=== PATIENT | male | born 1965 | race African-American/Black ===

== ENCOUNTER 2024-03-06 22:14 | Inpatient (IN) | payer OTHER, SELFPAY ==
[2024-03-06 16:00] VITALS: BP 143/79
[2024-03-06 19:06] VITALS: BP 144/81
--- NOTE | 2024-03-06 19:16 | ED.GENMED ---
History of Present Illness
General
Chief Complaint: Breathing Problem
Source: patient
Exam Limitations: none
Time Seen by Provider: 03/06/24 19:03
History of Present Illness
History of Present Illness:
See MDM
Past History
Past History
ED Past Medical History: HTN and Hypercholesterolemia
ED Past Surgical History: None
Social History
Tobacco: Non-smoker
Alcohol: None
Phy Exam
Physical Exam
Physical Exam:
See MDM
Scores
Heart Failure Risk
Heart Failure Risk Score: Not Applicable
Course
Orders/Labs/Results
Orders:
Orders
03/06/24 16:05
Electrocardiogram (*1) Urgent
Reason for Study: Bradycardia / Tachycardia
03/06/24 19:07
Complete Blood Count/With Diff Urgent
Comprehensive Metabolic Panel Urgent
Lactic Acid Urgent
03/06/24 19:15
0.9% Sodium Chloride 1000 ml [Nss] 1,000 ml IV BOLUS
Ketorolac [Toradol] 30 mg IV NOW STA
03/06/24 19:27
Blood Culture Q30M
NANCY Source: Blood/Venous
Specimen Description:
Blood Culture Q30M
NANCY Source: Blood/Venous
Specimen Description:
03/06/24 20:30
Urinalysis Reflex To Culture Urgent
Date Specimen was Collected: 03/06/24
Time Specimen was Collected: 19:51
Urine Microscopic Reflex Cult Urgent
Urine Culture Urgent
NANCY Source: U
Specimen Description:
Date Specimen was Collected: 03/06/24
Time Specimen was Collected: 19:51
03/06/24 21:11
Cefepime HCl [Maxipime] 1,000 mg IV NOW STA
Abnormal Lab Results
03/06/24 03/06/24
19:07 20:30
WBC 18.3 H 10^3/uL
(4.8-10.8)
Hgb 11.0 L g/dL
(13.0-18.0)
Hct 35.6 L %
(39.0-52.0)
MCV 75.7 L fL
(80.0-94.0)
MCH 23.4 L pg
(27.0-31.0)
MCHC 30.9 L g/dL
(33.0-37.0)
RDW 16.3 H %
(11.5-14.5)
Abs Immat Gran (auto) 0.1 H 10^3/uL
(0-0.05)
Absolute Neuts (auto) 16.1 H 10^3/uL
(1.4-6.5)
Absolute Lymphs (auto) 0.9 L 10^3/uL
(1.2-3.4)
Absolute Monos (auto) 1.2 H 10^3/uL
(0.1-0.6)
Neutrophils % 87.7 H %
(42.2-75.2)
Lymphocytes % 4.6 L %
(20.5-51.1)
Glucose 150 H mg/dl
(70-99)
Urine Ketones 2+ A
(Negative)
Ur Occult Blood Reflex 3+ A
(Negative)
Urine Nitrite (Reflex) Positive A
(Negative)
Leukocyte Esterase Rfl 2+ A
(Negative)
Urine Albumin (Reflex) 1+ A
(Neg - Trace)
03/06/24 19:07
03/06/24 19:07
Vital Signs
Initial and Last Documented VS:
Initial Vital Signs
Temp Pulse Resp BP Pulse Ox
98.1 F 109 16 143/79 100
03/06/24 16:00 03/06/24 16:00 03/06/24 16:00 03/06/24 16:00 03/06/24 16:00
Last Documented Vital Signs
Temp Pulse Resp BP Pulse Ox
101.1 F H 115 15 144/81 100
03/06/24 19:18 03/06/24 19:15 03/06/24 19:15 03/06/24 19:06 03/06/24 19:15
MDM/Problems Addressed
Differential Diagnosis Includes:
HPI and MDM Narrative:
58-year-old male presenting for evaluation of fever and increased urinary frequency. Patient went to urgent care and had blood work and a chest x-ray and viral testing. He was told that chest x-ray was normal. He does not complain of a cough or
shortness of breath. He states he has been urinating about 7 times a night. At baseline, he urinates approximately twice a night. He denies being evaluated for BPH. He had a urinary tract infection a year ago similar to today. On exam, patient
is tachycardic. Although he appears comfortable, he is warm. His temperature was normal in triage rechecked it in the room and it was 101.1. Will give Toradol and obtain basic blood work including blood cultures and lactic acid. Will obtain
urinalysis. No significant abdominal or back pain to suggest significant intra-abdominal pathology or possibly kidney stones
Physical exam
General: Well appearing and non-toxic
HEENT: protecting airway
Neck: appears supple
CV: No evidence of cyanosis. Tachycardic
Resp: No accessory muscle use. Lungs clear
Abd: Non-distended. No significant tenderness noted
Back: No CVA tenderness
Extremities: No deformities
Neuro: alert
Psych: Normal affect
Skin: Warm
Problems Addressed including Acute and Chronic Conditions affecting care:
1. Fever and increased urinary frequency
Acuity: acute
Prognosis: stable
Details: Given the mild back pain and the fever with urinary symptoms, will obtain urinalysis with concern for possible pyelonephritis.
Updates
Urine consistent with nitrates. Given the fever, back pain and urine, will treat as pyelonephritis. Patient started on cefepime.
Differential Diagnosis (but not limited to): Viral syndrome, pyelonephritis, cystitis
Testing considered: CT abdomen/pelvis but there is no significant abdominal or back tenderness noted
Drug therapy (if applicable): OTC meds, please see d/c instruction regarding Rx drugs
Amount and/or Complexity of Data Reviewed
Clinical info obtained from: Patient
External data reviewed: N/A
Labs I independently reviewed (but not limited to): Elevated white blood cell count, lactate normal
Radiology: N/A
Pulse Ox: not hypoxic
EKG independently reviewed: Sinus rhythm, normal axis, no STEMI
Manganese Heater: Sinus rhythm
Critical Care: N/A
Risk of Complication:
Social Determinants of health: Good social support
Discussed with other providers: Hospitalist
Escalation of Care includes Admit/Obs: Given the pyelonephritis with fever, will start antibiotics and admit
Occasional wrong word or 'sound a like' substitutions may have occurred due to the inherent limitations of voice recognition software. Read the chart carefully and recognize, using context, where substitutions have occurred.
*Critical Care Note
Total Time (30-74mins, 75-104mins- exclusive of procedures): Not Applicable
ED Attending Note
-
Portions of this chart may have been created with voice recognition software.� Occasional wrong word or��sound alike� substitutions may have occurred due to the inherent limitations of voice recognition software.
Discharge Plan
Departure
Patient Disposition: Admit
Date of Disposition: 03/06/24
Time of Disposition: 21:14
Admit to: Med/Surg
Presentation/result/management discussed w/ accepting MD/DO: Hospitalist
Discharge Problem:
Acute pyelonephritis
Prescriptions:
No Action
amlodipine 5 mg Tablet
5 mg PO HS
simvastatin 40 mg Tablet
20 mg PO HS
gabapentin 300 mg Capsule
300 mg PO PRN PRN (Reason: pain)
albuterol sulfate 90 mcg/actuation Hfa Aerosol Inhaler
2 puff INHALATION PRN PRN (Reason: Wheezes, SOB)
acetaminophen [Tylenol Extra Strength] 500 mg tablet
1,000 mg PO Q6HPRN PRN (Reason: mild pain) Qty: 1 0RF
ibuprofen 200 mg tablet
400 - 600 mg PO Q6HPRN PRN (Reason: moderate pain) Qty: 1 0RF
oxycodone 5 mg tablet
5 mg PO Q4HPRN PRN (Reason: breakthrough/severe pain) Qty: 5 0RF
Referrals:
Emelia Aguilar DO [Family Provider] -
Interventions
Interventions:
*Risk Screen - Suicide Last Done: 03/06/24 16:04
*Neglect/Abuse Screening Last Done: 03/06/24 16:04
*ED COVID-19 Vaccine History Last Done: 03/06/24 16:04
ED- Cardiac Assessment Last Done: 03/06/24 19:18
ED- Pulmonary Assessment Last Done: 03/06/24 19:18
Discharge Date and Time
Print Language: THAI
[2024-03-06] MEDS: NSS 1000 IV (19:27)
[2024-03-06 19:28] LABS: Lactic Acid 1.4 mmol/L (0.7-2.0)
[2024-03-06] MEDS: TORADOL 30 MG IV (19:28)
[2024-03-06 19:32] LABS: ALT (SGPT) 20 U/L (0-50); AST (SGOT) 23 U/L (17-59); Albumin 3.7 g/dl (3.5-5.0); Alkaline Phosphatase 65 U/L (38-126); Blood Urea Nitrogen 13 mg/dl (9-20); Calcium 9.1 mg/dl (8.4-10.2); Carbon Dioxide 25 mmol/L (22-30); Chloride 102 mmol/L (98-107); Glucose 150 mg/dl (70-99); Potassium 4.3 mmol/L (3.5-5.1); Sodium 136 mmol/L (135-145); Total Bilirubin 0.8 mg/dl (0.2-1.3); Total Protein 6.9 g/dl (6.3-8.2); eGFR > 60.00
[2024-03-06 19:38] LABS: Hematocrit 35.6 % (39.0-52.0); Mean Corp Hgb Conc. 30.9 g/dL (33.0-37.0); Mean Corpuscular Hgb 23.4 pg (27.0-31.0); Mean Corpuscular Volume 75.7 fL (80.0-94.0); Platelet Count 194 10^3/uL (130-400); Red Cell Dist. Width 16.3 % (11.5-14.5); White Blood Cell Count 18.3 10^3/uL (4.8-10.8)
[2024-03-06 19:41] LABS: % Basophils 0.3 % (0-2); % Eosinophils 0.2 % (0-6); % Immature Granulocytes 0.5 % (0-0.5); % Lymphocytes 4.6 % (20.5-51.1); % Monocytes 6.7 % (1.7-9.3); % Neutrophils 87.7 % (42.2-75.2); Absolute Basophils 0.1 10^3/uL (0-0.2); Absolute Immature Granulocytes 0.1 10^3/uL (0-0.05); Absolute Lymphocytes 0.9 10^3/uL (1.2-3.4); Absolute Monocytes 1.2 10^3/uL (0.1-0.6); Absolute Neutrophils 16.1 10^3/uL (1.4-6.5); Nucleated Red Blood Cells % 0 % (-)
[2024-03-06 20:00] VITALS: BP 127/69
[2024-03-06 20:36] LABS: Urine Albumin 1+ (Neg - Trace); Urine Bilirubin Negative (Negative); Urine Character Slightly Cloudy (Clear); Urine Color Yellow; Urine Glucose Negative (Negative); Urine Ketone 2+ (Negative); Urine Leukocyte 2+ (Negative); Urine Nitrite Positive (Negative); Urine Occult Blood 3+ (Negative); Urine Urobilinogen Negative (Neg - 1+)
[2024-03-06 21:37] LABS: Urine Bacteria Many (Negative); Urine Mucus Few; Urine Squamous Cell 0-2 /LPF (Few); Urine White Cell >100 /HPF (0-5)
[2024-03-06] MEDS: MAXIPIME 1000 MG IV (21:58)
--- NOTE | 2024-03-06 22:01 | HPS.HSE ---
Family Physician
-
Family Physician: Emelia Aguilar
Chief Complaint
-
fever
History of Present Illness
58-year-old male past medical history of hypertension, prediabetes, hypercholesteremia, osteoarthritis, cervical radiculopathy, HSV, presenting with elevated heart rate, pain in the bladder region, difficulty and pain with voiding urine and fevers
and chills. He also has some pain in in his bilateral lower back and increased joint pains. Denies nausea or vomiting. Denies diarrhea. Denies blood in the urine. He denies history of kidney stones.
He drinks alcohol occasionally. Denies smoking.
Medical History
Past Medical History
Past Medical History: Reports Other ( hypertension, prediabetes, hypercholesteremia, osteoarthritis, cervical radiculopathy, HSV,)
Past Surgical History: Reports Other (Lipoma excision, right shoulder rotator cuff x2, cervical spinal fusion, vasectomy, bunionectomy, lumpectomy, trigger finger repair x4))
Social History
Tobacco: Non-smoker
Alcohol: Occasional
Drug: None
Family History
Family History: Not pertinent
Allergies / Home Medications
Allergies reflects when Allergies were last updated in [facility].
Home Medications with original date entered in [facility]
Allergy/Medication List:
Allergies
Allergy/AdvReac Type Severity Reaction Status Date / Time
adhesive Allergy Pustules Verified 02/19/23 11:08
Home Medications
amlodipine 5 mg tablet 5 mg PO HS 02/16/23
simvastatin 40 mg tablet 20 mg PO HS 02/16/23
ibuprofen 200 mg tablet 400 - 600 mg (2 - 3 x 200 mg) PO Q6HPRN PRN moderate pain #1 tab 02/19/23
Review of Systems
-
History Source: Patient
A 12 point ROS was completed and negative except as noted: Yes
Constitutional: Reports No Symptoms
EENT: Reports No Symptoms
Respiratory: Reports No Symptoms
Cardiac: Reports No Symptoms
Abdomen/GI: Reports See HPI
: Reports See HPI
Musculoskeletal: Reports No Symptoms
Skin: Reports No Symptoms
Neurological: Reports No Symptoms
Endocrine: Reports No Symptoms
Hematologic/Lymphatic: Reports No Symptoms
Psych: Reports No Symptoms
Physical Exam
Vital Signs
Vital Signs
Temp Pulse Resp BP Pulse Ox
101.1 F H 115 15 144/81 100
03/06/24 19:18 03/06/24 19:15 03/06/24 19:15 03/06/24 19:06 03/06/24 19:15
Physical Exam
General: Well Developed, Well Nourished and No Apparent Distress
HEENT: NormoCephalic, Moist mucous membranes and Atraumatic
Respiratory: Clear
Cardiac: S1/S2 and Regular Rhythm; No Murmur or Rub
GI: Soft, Non Tender, Non Distended and Normal Bowel Sounds; No Organomegaly
Rectal: Deferred by Provider
Genito-urinary: Other (suprapubic tenderness )
Musculoskeletal: No Clubbing, No Cyanosis and No Edema
Skin: No Rash
Neuro: Nonfocal/grossly intact
Laboratory Results
-
03/06/24 19:07
03/06/24 19:07
Laboratory Results
Lactic Acid 1.4 mmol/L (0.7-2.0) 03/06/24 19:07
Total Bilirubin 0.8 mg/dl (0.2-1.3) 03/06/24 19:07
AST 23 U/L (17-59) 03/06/24 19:07
ALT 20 U/L (0-50) 03/06/24 19:07
Alkaline Phosphatase 65 U/L (38-126) 03/06/24 19:07
Data Reviewed
-
Lab Data: Labs Reviewed by me
Old Records: Reviewed
Impression/Plan
-
IMPRESSION:
PLAN:
# Sepsis (fever, tachycardia, leukocytosis) secondary to acute pyelonephritis
-Urinalysis positive
-IV fluids
-Urine culture
-Blood cultures
-Ceftriaxone
-Check CT abdomen pelvis to rule out obstructive stone/prostatitis
-Tylenol, Toradol as needed
-Bladder scan protocol
Essential hypertension
-Continue amlodipine
Hypercholesterolemia
-Continue statin
Prediabetes
-Not on medication
Osteoarthritis
Cervical radiculopathy
History of HSV
Full code
DVT prophylaxis�SCDs
Regular diet
[2024-03-06 22:47] VITALS: BMI 26.7
[2024-03-06 23:53] VITALS: BP 127/64
[2024-03-07] VITALS (10 sets, daily range): BP systolic 117–139; BP diastolic 38–78
[2024-03-07] MEDS: ROCEPHIN 1000 MG IV ×2 (00:08→23:17)
[2024-03-07] MEDS: LIPITOR PO (00:11)
[2024-03-07] MEDS: NSS 1000 IV ×2 (00:11→12:01)
[2024-03-07] MEDS: NORVASC PO (00:11)
--- NOTE | 2024-03-07 03:53 | PTCARENOTE ---
assumed care of pt as ed hold- afebrile bp wnl- sinus tach- fluids abx per orders- ax3 self care-
[2024-03-07] MEDS: TORADOL 15 MG IV ×3 (05:32→20:29)
[2024-03-07] MEDS: TYLENOL 650 MG PO ×3 (06:27→17:30)
--- NOTE | 2024-03-07 06:36 | PTCARENOTE ---
102.1 fever medicated with tylenol see mar
[2024-03-07 06:48] LABS: % Basophils 0.2 % (0-2); % Eosinophils 0.2 % (0-6); % Immature Granulocytes 0.8 % (0-0.5); % Lymphocytes 6.2 % (20.5-51.1); % Monocytes 6.5 % (1.7-9.3); % Neutrophils 86.1 % (42.2-75.2); Absolute Immature Granulocytes 0.1 10^3/uL (0-0.05); Absolute Lymphocytes 0.8 10^3/uL (1.2-3.4); Absolute Monocytes 0.8 10^3/uL (0.1-0.6); Absolute Neutrophils 11.1 10^3/uL (1.4-6.5); Hematocrit 33.6 % (39.0-52.0); Hemoglobin 10.4 g/dL (13.0-18.0); Mean Corpuscular Hgb 24.1 pg (27.0-31.0); Mean Corpuscular Volume 77.8 fL (80.0-94.0); Mean Platelet Volume 11.7 fL (7.4-10.4); Nucleated Red Blood Cells % 0 % (-); Platelet Count 192 10^3/uL (130-400); Red Blood Cell Count 4.32 10^6/uL (4.70-6.10); Red Cell Dist. Width 16.3 % (11.5-14.5); White Blood Cell Count 12.9 10^3/uL (4.8-10.8)
[2024-03-07 07:17] LABS: ALT (SGPT) 17 U/L (0-50); AST (SGOT) 20 U/L (17-59); Alkaline Phosphatase 66 U/L (38-126); Blood Urea Nitrogen 14 mg/dl (9-20); Calcium 8.4 mg/dl (8.4-10.2); Carbon Dioxide 22 mmol/L (22-30); Chloride 106 mmol/L (98-107); Estimated Creatinine Clearance 66 ml/min; Glucose 130 mg/dl (70-99); Potassium 4.3 mmol/L (3.5-5.1); Sodium 139 mmol/L (135-145); Total Bilirubin 0.4 mg/dl (0.2-1.3); eGFR > 60.00
--- NOTE | 2024-03-07 07:51 | W.PN.HOSP.TC ---
Today's Communication/Plan
-
IV antibiotics. IVF.
Assessment / Plan
Assessment / Plan
Physical exam:
General: Acutely ill
HEENT: Normocephalic, Atraumatic and Moist Mucous Membranes
Respiratory: Clear to Auscultation; Negative Wheezes, Rales or Rhonchi
Cardiac: Regular Rhythm and S1/S2
GI: Soft, Nontender and Nondistended
Musculoskeletal: No Clubbing, No Cyanosis and No Edema
Neuro: Awake, Alert and Disoriented
Psych: Calm
A/P:
Sepsis due to cUTI/pyelonephritis:
Continue IV fluids
Continue IV antibiotics, IV ceftriaxone
Seen ct abd-pelvis and no obstructive uropathy but evidence of cystitis
Follow-up blood and urine cx--> still pending
WBC 18.3-->12.9
Hypertension:
Continue amlodipine 5 mg p.o. nightly
Hyperlipidemia:
Continue atorvastatin 20 mg p.o. nightly
Prediabetes mellitus:
Lifestyle changes modification
DVT prophylaxis:
Start Lovenox SQ
CODE STATUS:
Full code
Anticipated Discharge: 24 - 48 hours
Subjective/Interval History
-
Date of Service: March 07, 2024
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 Tmax 102.1 Fahrenheit today. No abdominal pain nausea vomiting.
Objective Data
-
Labs:
Laboratory Results
03/07/24
04:58
WBC 12.9 H
Hgb 10.4 L
Hct 33.6 L
Plt Count 192
Sodium 139
Potassium 4.3
Chloride 106
Carbon Dioxide 22
BUN 14
Creatinine 1.2
Glucose 130 H
Calcium 8.4
Total Bilirubin 0.4
AST 20
ALT 17
Alkaline Phosphatase 66
Vital Signs:
Vital Signs
Temp Pulse Resp BP Pulse Ox
102.1 F H 105 25 137/67 99
03/07/24 06:27 03/07/24 06:00 03/07/24 06:00 03/07/24 06:00 03/07/24 06:00
I&O
03/06/24 03/07/24 03/08/24
06:59 06:59 06:59
Intake Total 940 / 940
Output Total 400 / 400
Balance 540 / 540
--- NOTE | 2024-03-07 16:08 | CM ---
Patient seen bedside.
IA completed.
Patient lives with spouse in a 2 story home, denies difficulty with stairs.
Patient is a .
Patient independent prior to admission without assistive devices.
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
patient denies home care needs at this time.
PCP: Dr Aguilar
Pharmacy: [facility]
Plan: home needs anticipated spouse will transport.
[2024-03-07] MEDS: LIPITOR 20 MG PO (17:31)
[2024-03-07] MEDS: LOVENOX 40 MG SC (17:32)
--- NOTE | 2024-03-07 17:36 | PTCARENOTE ---
Pt spiked fever of 102 w/ rigors. Tylenol given. Pt does note it is now easier for him when voiding urine.
[2024-03-07] MEDS: NORVASC 5 MG PO (23:17)
[2024-03-07] MEDS: STERILE WATER FOR INJECTION 10 ML IV (23:17)
[2024-03-08] MEDS: NSS 1000 IV (00:47)
[2024-03-08] MEDS: TYLENOL 650 MG PO (03:32)
[2024-03-08 07:00] VITALS: BP 109/67
--- NOTE | 2024-03-08 08:35 | W.PN.HOSP.TC ---
Today's Communication/Plan
-
IV antibiotic
Assessment / Plan
Assessment / Plan
Physical exam:
General: Acutely ill
HEENT: Normocephalic, Atraumatic and Moist Mucous Membranes
Respiratory: Clear to Auscultation; Negative Wheezes, Rales or Rhonchi
Cardiac: Regular Rhythm and S1/S2
GI: Soft, Nontender and Nondistended
Musculoskeletal: No Clubbing, No Cyanosis and No Edema
Neuro: Awake, Alert and Disoriented
Psych: Calm
A/P:
Sepsis due to cUTI/pyelonephritis:
Stop IV fluids
Continue IV antibiotics, IV ceftriaxone
Seen ct abd-pelvis and no obstructive uropathy but evidence of cystitis
Follow-up blood and urine cx--> urine culture with E. coli but pending sensitivities
WBC 18.3-->3.8
Hypertension:
Continue amlodipine 5 mg p.o. nightly
Hyperlipidemia:
Continue atorvastatin 20 mg p.o. nightly
Prediabetes mellitus:
Lifestyle changes modification
DVT prophylaxis:
Cont Lovenox SQ
CODE STATUS:
Full code
Anticipated Discharge: 24 - 48 hours
Subjective/Interval History
-
Date of Service: March 08, 2024
Patient still having fevers but trending down. No nausea vomiting or diarrhea
Objective Data
-
Labs:
Laboratory Results
03/08/24
07:52
WBC Pending
Hgb Pending
Hct Pending
Plt Count Pending
Sodium Pending
Potassium Pending
Chloride Pending
Carbon Dioxide Pending
BUN Pending
Creatinine Pending
Glucose Pending
Calcium Pending
Vital Signs:
Vital Signs
Temp Pulse Resp BP Pulse Ox
100.6 F H 88 18 117/80 99
03/08/24 03:30 03/07/24 23:17 03/07/24 23:13 03/07/24 23:17 03/07/24 23:13
I&O
03/07/24 03/08/24 03/09/24
06:59 06:59 06:59
Intake Total 940 / 940 1140 / 1140
Output Total 400 / 400 615 / 615
Balance 540 / 540 525 / 525
[2024-03-08 08:51] LABS: Hematocrit 32.4 % (39.0-52.0); Hemoglobin 10.2 g/dL (13.0-18.0); Mean Corp Hgb Conc. 31.5 g/dL (33.0-37.0); Mean Corpuscular Hgb 23.8 pg (27.0-31.0); Mean Corpuscular Volume 75.5 fL (80.0-94.0); Mean Platelet Volume 10.5 fL (7.4-10.4); Platelet Count 166 10^3/uL (130-400); Red Blood Cell Count 4.29 10^6/uL (4.70-6.10); White Blood Cell Count 3.8 10^3/uL (4.8-10.8)
[2024-03-08 08:57] LABS: Blood Urea Nitrogen 11 mg/dl (9-20); Calcium 8.2 mg/dl (8.4-10.2); Carbon Dioxide 22 mmol/L (22-30); Chloride 108 mmol/L (98-107); Estimated Creatinine Clearance 80 ml/min; Glucose 145 mg/dl (70-99); Sodium 139 mmol/L (135-145); eGFR > 60.00
[2024-03-08 09:33] LABS: Absolute Neutrophils -Man Diff 2.6 10^3/uL (1.4-6.5); Band Neutrophils 4 % (0-3); Lymphocytes 15 % (20-51); Monocytes 15 % (2-9); Normal RBC Morphology Yes; Platelets Checked Yes; Segmented Neutrophils 66 % (42-75); Total Cells Counted 100
[2024-03-08] MEDS: NSS IV (13:02)
[2024-03-08 15:00] VITALS: BP 120/71
[2024-03-08] MEDS: LIPITOR 20 MG PO (17:37)
[2024-03-08] MEDS: LOVENOX 40 MG SC (17:37)
[2024-03-08] MEDS: ANESTHETIC LOZENGE 1 LOZENGE PO (20:39)
--- NOTE | 2024-03-08 21:35 | PTCARENOTE ---
Pt c/o dry irritating cough. Requesting cepacol lozenges. [employer] covering house contacted, electronic orders received (refer to MAR) Family at bedside. Offers no complaints. Call alegre within reach.
[2024-03-08 23:00] VITALS: BP 118/70
[2024-03-08] MEDS: ROCEPHIN 1000 MG IV (23:03)
[2024-03-08] MEDS: NORVASC 5 MG PO (23:07)
[2024-03-08] MEDS: STERILE WATER FOR INJECTION 10 ML IV (23:07)
[2024-03-09 07:07] LABS: Hematocrit 34.4 % (39.0-52.0); Hemoglobin 10.3 g/dL (13.0-18.0); Mean Corp Hgb Conc. 29.9 g/dL (33.0-37.0); Mean Corpuscular Volume 76.8 fL (80.0-94.0); Mean Platelet Volume 10.3 fL (7.4-10.4); Platelet Count 162 10^3/uL (130-400); Red Blood Cell Count 4.48 10^6/uL (4.70-6.10); Red Cell Dist. Width 16.2 % (11.5-14.5); White Blood Cell Count 4.1 10^3/uL (4.8-10.8)
[2024-03-09 07:35] LABS: Blood Urea Nitrogen 10 mg/dl (9-20); Calcium 8.8 mg/dl (8.4-10.2); Carbon Dioxide 27 mmol/L (22-30); Chloride 105 mmol/L (98-107); Estimated Creatinine Clearance 80 ml/min; Glucose 135 mg/dl (70-99); Potassium 4.4 mmol/L (3.5-5.1); Sodium 139 mmol/L (135-145); eGFR > 60.00
[2024-03-09 08:09] VITALS: BP 136/72
--- NOTE | 2024-03-09 08:54 | W.PN.HOSP.TC ---
Today's Communication/Plan
-
Discharge planning today
Assessment / Plan
Assessment / Plan
Physical exam:
General: No acute distress
HEENT: Normocephalic, Atraumatic and Moist Mucous Membranes
Respiratory: Clear to Auscultation; Negative Wheezes, Rales or Rhonchi
Cardiac: Regular Rhythm and S1/S2
GI: Soft, Nontender and Nondistended
Musculoskeletal: No Clubbing, No Cyanosis and No Edema
Neuro: Awake, Alert and Disoriented
Psych: Calm
A/P:
Sepsis due to cUTI/pyelonephritis:
Stop IV fluids
Change IV ceftriaxone to oral Keflex
Seen ct abd-pelvis and no obstructive uropathy but evidence of cystitis
Follow-up blood and urine cx--> urine culture with E. coli and it is pansensitive
WBC 18.3-->4.1
Plan to discharge today
Hypertension:
Continue amlodipine 5 mg p.o. nightly
Hyperlipidemia:
Continue atorvastatin 20 mg p.o. nightly
Prediabetes mellitus:
Lifestyle changes modification
DVT prophylaxis:
Cont Lovenox SQ
CODE STATUS:
Full code
Anticipated Discharge: Today
Subjective/Interval History
-
Date of Service: March 09, 2024
Patient doing well today. Afebrile
Objective Data
-
Labs:
Laboratory Results
03/09/24
06:42
WBC 4.1 L
Hgb 10.3 L
Hct 34.4 L
Plt Count 162
Sodium 139
Potassium 4.4
Chloride 105
Carbon Dioxide 27
BUN 10
Creatinine 1.0
Glucose 135 H
Calcium 8.8
Vital Signs:
Vital Signs
Temp Pulse Resp BP Pulse Ox
99 F 82 18 136/72 97
03/09/24 08:09 03/09/24 08:09 03/09/24 08:09 03/09/24 08:09 03/09/24 08:09
I&O
03/08/24 03/09/24 03/10/24
06:59 06:59 06:59
Intake Total 1140 / 1140 1920 / 1920
Output Total 615 / 615 1075 / 1075
Balance 525 / 525 845 / 845
[2024-03-09 09:35] LABS: Absolute Neutrophils -Man Diff 1.9 10^3/uL (1.4-6.5); Band Neutrophils 4 % (0-3); Eosinophils 3 % (0-6); Lymphocytes 34 % (20-51); Monocytes 14 % (2-9); Segmented Neutrophils 44 % (42-75)
[2024-03-09 09:36] LABS: Acanthocytes 1+; Anisocytosis 1+; Hypochromasia 2+; Normal RBC Morphology No; Ovalocytes 1+; Platelets Checked Yes; Polychromasia 1+; Total Cells Counted 100
--- NOTE | 2024-03-09 11:33 | W.DCSUMMARY ---
Discharge Summary
Discharge Data
Date of Admission: 03/06/24
Date of Discharge: 03/09/24
-
Pending Results: No
Hospital Course
Patient 58 years old male came into the hospital with fever and found to have urinary tract infection/pyelonephritis. He was given broad-spectrum IV antibiotics and IV fluids. Blood cultures no growth. Urine culture was consistent with E. coli
pansensitive. His fever subsided and he felt better. He is going to be discharged on a oral course of antibiotics according to sensitivities. He has been discharged in stable condition today.
Discharge duration: 35 minutes
Discharge Plan
-
Patient Disposition: Home (Routine Discharge)
Discharge Diagnosis/Procedures: Sepsis. Urinary tract infection. Pyelonephritis.
Diet: Low Cholesterol
Activity: As tolerated
Blood Work: Please PCP to order CBC, BMP within 1 week
Referrals:
Emelia Aguilar, DO [Family Provider] - in less than 1 week
Prescriptions:
New
cephalexin 500 mg Capsule
500 mg PO BID 7 Days Qty: 14 0RF
Continued
amlodipine 5 mg Tablet
5 mg PO HS
simvastatin 40 mg Tablet
20 mg PO HS
Discontinued
ibuprofen 200 mg tablet
400 - 600 mg PO Q6HPRN PRN (Reason: moderate pain) Qty: 1 0RF
Discharge Orders:
Discharge Patient (As Directed); Ordered 03/09/24
Ordered By: Jeremiah Triplett
Discharge Date and Time
Discharge Date/Time: 03/09/24 13:19
Print Language: BHUTANESE
--- NOTE | 2024-03-09 11:45 | CM ---
plan: D/c home no needs.
[2024-03-09] MEDS: KEFLEX 500 MG PO (11:47)
[2024-03-09 12:16] VITALS: BP 118/79
== END 2024-03-09 13:19 | disposition home or self-care (01) | DRG 872 ==
LOC: 1 ACUTE 22:14
PROVIDERS: ADMITTING PHYSICIAN Hospitalist; ATTENDING PHYSICIAN Hospitalist; EMERGENCY PHYSICIAN Student in an Organized Health Care Education/Training Program; FAMILY PHYSICIAN Family Medicine
DX: A41.51 Sepsis due to Escherichia coli [E. coli] (principal); N10 Acute pyelonephritis; R06.02 Shortness of breath; E78.00 Pure hypercholesterolemia, unspecified; I10 Essential (primary) hypertension; E78.5 Hyperlipidemia, unspecified; R73.03 Prediabetes; M19.90 Unspecified osteoarthritis, unspecified site; M54.12 Radiculopathy, cervical region; Z91.048 Other nonmedicinal substance allergy status; Z87.440 Personal history of urinary (tract) infections
CPT/HCPCS: 74176; 80048; 80053; 81003; 81015; 83605; 85025; 87040; 87077; 87086; 87186; 93005; 96361; 96374; 99285